=== PATIENT | female | born 1970 | race Caucasian/White ===

== ENCOUNTER 2017-04-21 14:50 | Emergency (ER) | payer BC ==
[~2017-04-21] VITALS: Ht 182.9 cm; Wt 117.9 kg
[~2017-04-21 14:50] MED LIST: ACET325 PO; Amoxicillin500 MG PO; CEPH500 PO; CHOL10002; CYCL10 PO; Cleocin HCl300 MG PO; Cyclobenzaprine5 MG PO; GABA300 PO; HYDACE5 PO; Hair, Skin & N1 EACH PO; IBUP800 PO; LORA1 PO; Multiple Vitam1 EAC1 PO; NAPR500 PO; Norco 10-325 T1 EACH PO; OXYACE5T PO; OXYC5 PO; PENVK500 PO; PROM25 PO; Percocet 5-3251 EACH PO; TRAZ100 PO; VENL150ER PO; VENL75ER PO; ZOLP5 PO; Zofran Odt4 MG SL
[2017-04-21] MEDS ORDERED: Norco 5-325 Ta1 EACH PO (16:31)
[2017-10-19] MEDS ORDERED: Venlafaxine HC225 MG PO (15:09)
[2017-10-19] MEDS ORDERED: ZOLP5 PO (15:10)
[2017-10-19] MEDS ORDERED: Cyclobenzaprine5 MG PO (17:22)
[2017-10-19] MEDS ORDERED: Norco 5-325 Ta1 EACH PO (17:22)
== END 2017-04-21 16:41 | disposition home or self-care (01) ==
LOC: ER 14:50
DX: S60.221A Contusion of right hand, initial encounter (principal); M79.645 Pain in left finger(s); F32.9 Major depressive disorder, single episode, unspecified; Z88.2 Allergy status to sulfonamides; Z88.8 Allergy status to other drugs, medicaments and biological substances; Z79.899 Other long term (current) drug therapy; Z98.51 Tubal ligation status; W55.12XA Struck by horse, initial encounter
CPT/HCPCS: 29125; 73130; 73140; 99283; L3917

== ENCOUNTER 2018-04-03 19:40 | Emergency (ER) | payer BC, MEDICARE ==
[~2018-04-03] VITALS: Ht 185.4 cm; Wt 115.7 kg
[~2018-04-03 19:40] MED LIST changes: +Norco 5-325 Ta1 EACH PO; +Venlafaxine HC225 MG PO
[2018-04-03] MEDS ORDERED: IBUP600 PO (20:36)
== END 2018-04-03 20:47 | disposition home or self-care (01) ==
LOC: ER 19:40
DX: S62.636A Displaced fracture of distal phalanx of right little finger, initial encounter for closed fracture (principal); W01.198A Fall on same level from slipping, tripping and stumbling with subsequent striking against other object, initial encounter; Z88.2 Allergy status to sulfonamides; Z88.8 Allergy status to other drugs, medicaments and biological substances; Z88.1 Allergy status to other antibiotic agents; Z79.899 Other long term (current) drug therapy
CPT/HCPCS: 29130; 73140; 99283-25

== ENCOUNTER → 2018-06-25 | Outpatient (CLI) | payer BC, MEDICARE ==
[~2018-06-25] MED LIST changes: +IBUP600 PO
[2018-06-27 14:07] LABS: HPV 16 Negative (Negative); HPV 18 Negative (Negative); HPV OTHER HR TYPES Negative (Negative)
== END | disposition home or self-care (01) ==
LOC: LAB SHORT 11:37 → LAB 11:37
PROVIDERS: Nurse Practitioner Obstetrics & Gynecology
DX: Z01.419 Encounter for gynecological examination (general) (routine) without abnormal findings (principal)
CPT/HCPCS: 87624; G0123

== ENCOUNTER 2019-04-14 01:08 | Emergency (ER) | payer BC, MEDICARE ==
[~2019-04-14] VITALS: Ht 182.9 cm; Wt 117.9 kg
[2019-04-14] MEDS ORDERED: OXYC5 PO (01:25)
== END 2019-04-14 03:37 | disposition home or self-care (01) ==
LOC: ER 01:08
DX: G89.18 Other acute postprocedural pain (principal); M79.671 Pain in right foot; Z88.2 Allergy status to sulfonamides; Z88.8 Allergy status to other drugs, medicaments and biological substances; Z91.048 Other nonmedicinal substance allergy status; Z79.899 Other long term (current) drug therapy
CPT/HCPCS: 96374; 96375; 96376; 99283-25; J1170; J2405

== ENCOUNTER → 2019-12-16 | Outpatient (CLI) | payer MEDICARE ==
[~2019-12-16] MED LIST changes: +IBU800 MG PO
[2019-12-17 16:10] LABS: HPV 16 Negative (Negative); HPV 18 Negative (Negative); HPV OTHER HR TYPES Positive (Negative)
== END | disposition home or self-care (01) ==
LOC: LAB 10:18 → LAB SHORT 10:18
PROVIDERS: Obstetrics & Gynecology
DX: Z01.419 Encounter for gynecological examination (general) (routine) without abnormal findings (principal)
CPT/HCPCS: 87624; 87625; G0123

== ENCOUNTER 2020-01-01 17:39 | Emergency (ER) | payer MEDICARE ==
[~2020-01-01] VITALS: Ht 182.9 cm; Wt 129.7 kg
[~2020-01-01 17:39] MED LIST changes: -IBU800 MG PO
[2020-01-01] MEDS ORDERED: IBU800 MG PO (18:18)
== END 2020-01-01 18:23 | disposition home or self-care (01) ==
LOC: ER 17:39
DX: S50.12XA Contusion of left forearm, initial encounter (principal); Z88.2 Allergy status to sulfonamides; Z88.8 Allergy status to other drugs, medicaments and biological substances; Z88.1 Allergy status to other antibiotic agents; Z79.899 Other long term (current) drug therapy; W55.12XA Struck by horse, initial encounter
CPT/HCPCS: 73090; 99283-25

== ENCOUNTER → 2020-01-28 | Outpatient (CLI) | payer MEDICARE ==
[~2020-01-28] MED LIST changes: +IBU800 MG PO
== END | disposition home or self-care (01) ==
LOC: LAB SHORT 08:19 → PLD 08:19
DX: R87.810 Cervical high risk human papillomavirus (HPV) DNA test positive (principal)
CPT/HCPCS: 88305

== ENCOUNTER → 2021-02-21 | Outpatient (CLI) | payer BC, MEDICARE ==
[2021-02-22 13:10] LABS: HPV 16 Negative (Negative); HPV 18 Negative (Negative); HPV OTHER HR TYPES Positive (Negative)
== END | disposition home or self-care (01) ==
LOC: LAB SHORT 15:43 → LAB 15:43
PROVIDERS: Obstetrics & Gynecology
DX: Z01.419 Encounter for gynecological examination (general) (routine) without abnormal findings (principal)
CPT/HCPCS: 87624; 87625; G0123

== ENCOUNTER → 2022-07-18 | Outpatient (CLI) | payer BC, MEDICARE ==
[2022-07-19 15:07] LABS: HPV 16 Negative (Negative); HPV 18 Negative (Negative); HPV OTHER HR TYPES Positive (Negative)
== END | disposition home or self-care (01) ==
LOC: LAB SHORT 11:20 → LAB 11:20
PROVIDERS: Obstetrics & Gynecology
DX: Z01.419 Encounter for gynecological examination (general) (routine) without abnormal findings (principal)
CPT/HCPCS: 87624; G0145

== ENCOUNTER 2023-10-07 15:22 | Inpatient (IN) | payer OTHER, BC, MEDICARE ==
[~2023-10-07] VITALS: Ht 182.9 cm; Wt 136.1 kg
[2023-10-07] MEDS ORDERED: Ketorolac Tromethamine 30mg Vial IV ONE ×2 (15:35→20:20)
[2023-10-07] MEDS ORDERED: Ondansetron HCl 2 MG / ML 2ML Vial IV PRN ×2 (17:15→19:10)
[2023-10-07] MEDS ORDERED: HYDROmorphone HCl/Pf 1MG SYR IV PRN (17:15)
[2023-10-07] MEDS ORDERED: NS 1,000 ML IV SCH (19:15)
[2023-10-07 19:51] LABS: BASOPHILS ABSOLUTE AUTO 0.04 K/mm3 (0.00-0.23); BASOPHILS PERCENT AUTO 0 % (0-2); EOSINOPHILS ABSOLUTE AUTO 0.04 K/mm3 (0.00-0.68); EOSINOPHILS PERCENT AUTO 0 % (0-6); Hematocrit 36.9 % (33.0-51.0); Hemoglobin 12.3 g/dL (11.5-16.0); IMMATURE GRAN ABSOLUTE AUTO 0.02 K/mm3 (0.00-0.10); IMMATURE GRAN PERCENT AUTO 0 % (0-1); LYMPHOCYTES ABSOLUTE AUTO 1.64 K/mm3 (0.84-5.20); LYMPHOCYTES PERCENT AUTO 17 % (21-46); MONOCYTES ABSOLUTE AUTO 0.39 K/mm3 (0.16-1.47); MONOCYTES PERCENT AUTO 4 % (4-13); Mean Corpuscular HGB 30.8 pg (26.0-34.0); Mean Corpuscular HGB Conc 33.3 g/dL (31.5-36.5); Mean Corpuscular Volume 93 fL (80-100); Mean Platelet Volume 11.2 fL (9.1-12.4); NEUTROPHILS ABSOLUTE AUTO 7.68 K/mm3 (1.96-9.15); NEUTROPHILS PERCENT AUTO 78 % (41-73); Platelet Count 206 K/mm3 (150-400); RDW Coefficient Variation 13.4 % (11.7-14.2); RDW Standard Deviation 45.9 fL (35.1-46.3); Red Blood Cell Count 3.99 M/mm3 (3.80-5.20); White Blood Cell Count 9.81 K/mm3 (4.00-11.30)
[2023-10-07 20:06] LABS: International Normalized Ratio 0.98; Prothrombin Time Results 10.5 Sec (9.7-11.5)
[2023-10-07 20:09] LABS: Albumin, Blood 3.4 g/dL (3.4-5.0); Bilirubin, Total 0.4 mg/dL (0.1-1.0); Bun/Creatinine Ratio 23.3 (12.0-20.0); Calcium, Blood 8.6 mg/dL (8.5-10.1); Creatinine, Blood 0.86 mg/dL (0.40-1.00); Globulin, Blood 3.5 g/dL (2.2-4.0); Potassium, Blood 4.7 mmol/L (3.5-5.5); Total Protein, Blood 6.9 g/dL (6.4-8.2)
[2023-10-07] MEDS ORDERED: FentaNYL Citrate 50 MCG/ML 2 ML Injection IV ONE (20:20)
[2023-10-07] MEDS ORDERED: LORazepam 2 MG/ML 1ML Injection IV ONE (20:40)
[2023-10-07 20:58] VITALS: BP 134/86
[2023-10-07] MEDS ORDERED: METFORMIN HCL500 M2 PO (22:51)
[2023-10-07] MEDS ORDERED: TRAVOPROST2.5 ML BOTHEYES (22:53)
[2023-10-07] MEDS ORDERED: TEARS LUBRICANT15 ML BOTHEYES (22:58)
[2023-10-07] MEDS ORDERED: Gabapentin 300 MG Cap PO SCH (23:15)
[2023-10-07] MEDS ORDERED: TraZODone HCl 100 MG Tab PO SCH (23:16)
[2023-10-07] MEDS ORDERED: Peg 400/Hypromellose/Glycerin 15 DROP/ML BTL BOTHEYES PRN (23:45)
[2023-10-08] VITALS (14 sets, daily range): BP systolic 109–144; BP diastolic 65–97
[2023-10-08 06:14] LABS: BASOPHILS ABSOLUTE AUTO 0.03 K/mm3 (0.00-0.23); BASOPHILS PERCENT AUTO 0 % (0-2); EOSINOPHILS ABSOLUTE AUTO 0.14 K/mm3 (0.00-0.68); EOSINOPHILS PERCENT AUTO 2 % (0-6); Hematocrit 34.4 % (33.0-51.0); Hemoglobin 11.4 g/dL (11.5-16.0); IMMATURE GRAN ABSOLUTE AUTO 0.02 K/mm3 (0.00-0.10); IMMATURE GRAN PERCENT AUTO 0 % (0-1); LYMPHOCYTES ABSOLUTE AUTO 1.82 K/mm3 (0.84-5.20); LYMPHOCYTES PERCENT AUTO 26 % (21-46); MONOCYTES PERCENT AUTO 7 % (4-13); Mean Corpuscular HGB 31.1 pg (26.0-34.0); Mean Corpuscular HGB Conc 33.1 g/dL (31.5-36.5); Mean Corpuscular Volume 94 fL (80-100); Mean Platelet Volume 11.2 fL (9.1-12.4); NEUTROPHILS ABSOLUTE AUTO 4.46 K/mm3 (1.96-9.15); NEUTROPHILS PERCENT AUTO 64 % (41-73); Platelet Count 179 K/mm3 (150-400); RDW Coefficient Variation 13.5 % (11.7-14.2); RDW Standard Deviation 46.1 fL (35.1-46.3); Red Blood Cell Count 3.67 M/mm3 (3.80-5.20); White Blood Cell Count 6.97 K/mm3 (4.00-11.30)
--- NOTE | 2023-10-08 06:35 | NUR ---
SUMMARY- PT ARRIVED TO ROOM IN NO DISTRESS. PT HAS NEW SPLINT PLACED IN ER. PT HAS GOOD COLOR, SENSATION AND PEDAL PULSE. PT PAIN MANAGED WELL PER EMAR AND ICE PACK TO KNEE. PT HAS BEEN NPO SINCE [facility]. PT RESTING COMFORTABLY. CALL LIGHT IN REACH.
[2023-10-08 07:14] LABS: Albumin, Blood 3.3 g/dL (3.4-5.0); Albumin/Globulin Ratio 1.1 (0.8-1.8); Bilirubin, Total 0.5 mg/dL (0.1-1.0); Bun/Creatinine Ratio 17.7 (12.0-20.0); Calcium, Blood 8.6 mg/dL (8.5-10.1); Creatinine, Blood 0.85 mg/dL (0.40-1.00); Globulin, Blood 3.1 g/dL (2.2-4.0); Potassium, Blood 4.1 mmol/L (3.5-5.5); Total Protein, Blood 6.4 g/dL (6.4-8.2)
[2023-10-08] MEDS ORDERED: Insulin Human Lispro 100 Units/ML 3ML Syringe SC SCH (07:30)
[2023-10-08] MEDS ORDERED: Latanoprost 0.005% Opth Soln 2.5 ML BOTHEYES SCH (09:00)
[2023-10-08] MEDS ORDERED: Venlafaxine HCl 75 MG CapCR PO SCH (09:00)
[2023-10-08] MEDS ORDERED: HYDROmorphone HCl/Pf 1MG SYR IV PRN (09:45)
[2023-10-08] MEDS ORDERED: LATA.005SO BOTHEYES (11:43)
[2023-10-08] MEDS ORDERED: CYCL10 PO (11:44)
[2023-10-08] MEDS ORDERED: MOBIC15 MG PO (11:44)
[2023-10-08] MEDS ORDERED: Venlafaxine HC150 MG PO (11:45)
[2023-10-08] MEDS ORDERED: OXYC5 PO (11:46)
[2023-10-08] MEDS ORDERED: Lactated Ringer's 1,000 ML IV SCH (13:25)
--- NOTE | 2023-10-08 13:30 | NUR ---
PT REPORTED INCREASED PAIN TO LLE AFTER MUSCLE SPASM. PT STATED SHE WAS CONCERNED ABOUT COMPARTMENT SYNDROME SINCE PAIN INCREASED. PT'S CAP REFIL <3 SECONDS. PEDAL PULSE STRONG AND EQUAL BILATERALLY. UNABLE TO ASSESS TIBIAL PULSE R/T DRESSING. TOES ARE PALE AND COOL BUT NOT COLD. PT DENIES N/T TO LLE. PT EDUCATED REGARDING S/S OF COMPARTMENT SYNDROME
[2023-10-08] MEDS ORDERED: FentaNYL Citrate 50 MCG/ML 2 ML Injection ONE (14:37)
[2023-10-08] MEDS ORDERED: Midazolam HCl 1MG / ML 2ML Vial ONE (14:37)
[2023-10-08] MEDS ORDERED: propofoL 20 ML IV ONE (14:38)
--- NOTE | 2023-10-08 14:51 | NUR ---
PT TAKEN TO DAY SURGERY AT THIS TIME.
--- NOTE | 2023-10-08 15:00 | NUR ---
PT TO DAY SURGERY FROM SURGICAL FLOOR FOR L EXTERNAL FIXATOR KNEE. CHART AND HX REVIEWED. PLAN OF CARE DISCUSSED WITH PT AND HER . QUESTIONS ANSWSERED.
--- NOTE | 2023-10-08 15:06 | NUR ---
PT TO DAY SURGERY WITH 20G IV TO LEFT WRIST
[2023-10-08] MEDS ORDERED: CeFAZolin Sodium 3,000 MG in NS 100 ML IV SCH (15:20)
[2023-10-08] MEDS ORDERED: CeFAZolin Sodium 2,000 MG VIAL ONE (15:29)
[2023-10-08] MEDS ORDERED: Ketorolac Tromethamine 30mg Vial ONE (16:06)
[2023-10-08] MEDS ORDERED: Ondansetron HCl 2 MG / ML 2ML Vial ONE (16:06)
[2023-10-08] MEDS ORDERED: Dexamethasone Sod Phos 10 MG/ML 1ML VIAL ONE (16:06)
[2023-10-08] MEDS ORDERED: HYDROmorphone HCl/Pf 1MG SYR ONE ×2 (16:43→17:00)
[2023-10-08] MEDS ORDERED: OxyCODONE HCL 5 MG TAB PO PRN (18:30)
[2023-10-08] MEDS ORDERED: Ketorolac Tromethamine 15mg Vial IV PRN (18:30)
--- NOTE | 2023-10-08 19:41 | NUR ---
SHIFT SUMMARY PT ARRIVED BACK TO THE ROOM AT APPROXIMATELY 1723. PT CRYING IN PAIN, DILAUDID GIVEN FOR PAIN. DR. CORONADO NOTIFIED OF ELEVATED PAIN, PO PAIN MEDICATION ORDERED IN ADDITION TO IV. PT PLACED ON CONTINUOUS PULSE OX FOR HIGH RISK PAIN MANAGEMENT. BEDSIDE REPORT GIVEN TO SEAN GARCIA.
[2023-10-09] VITALS (12 sets, daily range): BP systolic 100–147; BP diastolic 60–95
[2023-10-09] MEDS ORDERED: Acetaminophen 500 MG Tab PO SCH
--- NOTE | 2023-10-09 04:59 | NUR ---
SHIFT SUMMARY SAW WAS ALERT AND FULLY ORIENTED ON ASSESSMENT. DRIED RED BLOOD NOTED AT BOTH FIXATION SITES. PAIN WELL MANAGED AT THIS TIME, EDUCATION PROVIDED ON THERAPEUTIC USE OF IV PAIN MANAGEMENT. PEDAL PULSES AND SENSATION INTACT, PT ON BEDREST. NO CHANGES NOTED TO PT CONDITION
[2023-10-09] MEDS ORDERED: Enoxaparin 30 MG/0.3 ML SYR SC SCH (09:00)
--- NOTE | 2023-10-09 11:40 | NUR ---
PATIENTS BANDAGES WERE JUST CHANGED WHICH TOOK 3 STAFF MEMEBERS TO CHANGE. PATIENT HAS NEW XEROFOAM, GAUZE, KERLEX, AND CHRISTINA WRAP AROUND BOTH EXTERNAL FIXATIONS THAT ARE NOW C/D/I. PATIENT DENIES NUMBNESS OR TINGLING IN ALL EXTREMITIES. SHE IS LAYING IN BED WITH CALL LIGHT IN REACH.
--- NOTE | 2023-10-09 14:47 | NUR ---
PATIENT WAS GIVEN IV DILAUDID RIGHT BEFORE BEING SLID OVER FROM THE BED TO THE XRAY GURNEY. ONCE PATIENT WAS ON THE XRAY GURNEY PATIENT WAS TALKING CLEAR AND COHERENTLY THEN IN THE MIDDLE OF HER SENTENCE PATIENT REPORTED HER RIGHT SIDE OF HER FACE WAS NUMB AND THEN HAD GARBLED SPEECH. CATALINO RN ASKED FOR THE PATIENT TO SMILE AND HER RIGHT SIDE OF HER MOUTH DID NOT MOVE. CATALINO RN ALSO ASKED THE PATIENT TO STICK OUT HER TOUGNE WHICH SHE STUCK OUT TO THE LEFT SIDE OF HER MOUTH. THIS NURSE THEN CALLED A RAPID RESPONSE. ONCE THE RAPID RESPONSE TEAM ARRIVED TO THE ROOM THE PATIENT WAS STARTING TO SPEAK MORE CLEARLY BUT WAS STILL REPORTING NUMBNESS TO HER RIGHT SIDE. SBP WAS ELEVATED BUT OTHERWISE VITALS WERE WNL. PATIENTS FOREIGN EXCHANGE SERVICES MANAGER IN BOTH HANDS WERE STRONG. PEDAL PULSES WERE STRONG AND WARM TO TOUCH AND SHE WAS ABLE TO WIGGLE BOTH FINGERS AND TOES. DR. SAUCEDO STATED "DO Q1H NEURO CHECKS X5 AND Q1H SBP CHECKS X5 ONCE SHE COMES BACK FROM THE HEAD CT AND X-RAYS TO HER LEFT LEG".
--- NOTE | 2023-10-09 14:56 | NUR ---
PATIENT IS CURRENTLY IN IMAGING AT THIS TIME.
[2023-10-09] MEDS ORDERED: FentaNYL Citrate 50 MCG/ML 2 ML Injection IV PRN (15:20)
--- NOTE | 2023-10-09 15:26 | NUR ---
"Spiritual Care | Rapid Response Gave family support while pt. was being attended, and then brought back to Imaging. Stayed with family and facilitated life review until Pt. returned to her room. Family verbalized gratitude for the spiritual care support."
--- NOTE | 2023-10-09 15:36 | NUR ---
NEURO CHECK #1: PATIENT IS A&OX4. SHE IS ANSWERING QUESTIONS APPROPRIATELY, CLEARLY, AND CORRECTLY. WHEN SHE SMILES IT IS SYMETRICAL. SHE DENIES NUMBNESS TO THE RIGHT SIDE OF HER FACE. THIS NURSE TESTED THE PATIENTS HAND LAP MACHINE OPERATOR AND THEY ARE BOTH STRONG WITH EVEN STRENGTH. SHE IS ABLE TO MOVE ALL EXTREMITIES. DENIES NUMBNESS OR TINGLING TO ALL EXTREMITIES. WHEN ASKED TO STICK OUT HER TOUGNE IT DOES NOT DEVIATE TO ONLY ONE SIDE. SHE IS LAYING IN BED WITH CALL LIGHT IN REACH.
[2023-10-09] MEDS ORDERED: Aspirin 325 MG Tab PO ONE (15:40)
--- NOTE | 2023-10-09 16:35 | NUR ---
NEURO CHECK #2: NO SIGNIFICANT CHANGES SINCE FIRST NEURO CHECK. PATIENT IS A&OX4. VS ARE WNL AND IS ON RA. PATIENT IS ANSWERING QUESTIONS CLEARLY AND APPROPRIATELY. WHEN ASKED TO SMILE PATIENTS SMILE IS SYMETRICAL. BOTH HAND SECRETARY TO BOARD OF COMMISSIONERS STRENGTH IS STRONG AND EQUAL. PATIENT DENIES NUMBNESS TO THE RIGHT SIDE OF HER FACE. PATIENT IS ABLE TO MOVE ALL EXTREMITIES AND WIGGLE ALL FINGERS AND TOES WHEN ASKED. WHEN ASKED TO STICK OUT HER TOUGNE IT DOES NOT DEVIATE TO ONE SIDE. PATIENT IS LAYING IN BED WITH CALL LIGHT IN REACH.
--- NOTE | 2023-10-09 16:38 | NUR ---
SHIFT SUMMARY: POD 1 LEFT KNEE EXTERNAL FIXATION REPAIR PATIENT IS A&OX4. SHE IS SPEAKING CLEARLY AND ANSWERING QUESTIONS APPROPRIATELY WITH NO GARBLED SPEECH SO FAR. PATIENT IS STILL ON THE Q1H SBP AND NEURO CHECKS PER DR. SAUCEDO'S ORDERS (SEE PREVIOUS NOTES) WHICH HAVE BEEN WNL AT THIS TIME. HER LEFT LEG HAS AN EXTERNAL FIXATION WITH GAUZE AND CHRISTINA WRAP DRESSING. PATIENT DENIES NUMBNESS OR TINGLING IN ALL EXTREMITIES. SHE IS ABLE TO WIGGLE ALL FINGERS AND TOES WHEN ASKED. SHE IS TOLERATING PO INTAKE AND IS VOIDING VIA PURWICK THATS ON LOW INTERMITTENT SUCTION. PATIENT IS LAYING IN BED WITH CALL LIGHT IN REACH AND FAMILY AT BEDSIDE. PATIENT CALLS APPROPRIATELY.
--- NOTE | 2023-10-09 17:23 | NUR ---
NEURO CHECK #3: PATIENT IS ANSWERING QUESTIONS CLEARLY AND APPROPRIATELY. SHE IS A&OX4. VS ARE WNL AND IS ON RA. PATIENT DENIES NUMBNESS TO HER RIGHT SIDE OF FACE OR TO ANY EXTREMITIES. SHE IS ABLE TO WIGGLE ALL FINGERS AND TOES WHEN ASKED. BOTH HAND PHARMACEUTICAL SALES REPRESENTATIVE ARE STRONG AND EQUAL. WHEN SHE SMILES HER SMILE IS SYMETRICAL. WHEN SHE STICKS OUT HER TOUGNE IT DOES NOT DEVIATE TO ONE SIDE. PATIENT IS LAYING IN BED WITH CALL LIGHT IN REACH. PATIENT CALLS APPROPRIATELY.
--- NOTE | 2023-10-09 18:20 | NUR ---
NEURO CHECK #4: PATIENT IS ANSWERING QUESTIONS CLEARLY AND APPROPRIATELY. SHE IS A&OX4. VS ARE WNL AND IS ON RA. SHE DENIES NUMBNESS TO HER FACE OR ANY EXTREMITIES. SHE IS ABLE TO WIGGLE ALL FINGERS AND TOES WHEN ASKED. WHEN PATIENT SMILES HER SMILE IS SYMETRICAL. WHEN SHE STICKS OUT HER TOUGNE IT DOES NOT DEVIATE TO A SPECIFIC SIDE. HER HAND [place] MACHINE OPERATOR IN BOTH HANDS ARE STRONG AND EVEN. PATIENT IS LAYING IN BED WITH CALL LIGHT IN REACH. SHE CALLS APPROPRIATELY.
[2023-10-10 04:10] VITALS: BP 111/71
[2023-10-10 05:02] LABS: CHOL/HDL RATIO 2.6; Cholesterol 152 mg/dL (50-200); HDL Cholesterol 59 mg/dL (>39); LDL/HDL RATIO 1.3; Low Density Lipoprotein Chol 76 mg/dL (0-110); Triglycerides 83 mg/dL (30-160); Very Low Density Lipoprot Chol 16 mg/dL (6-32)
--- NOTE | 2023-10-10 05:22 | NUR ---
SHIFT SUMMARY POD2 EXTERNAL FIXATION OF LLE. LOWER DRESSING NOTED TO BE WEEPING A MODERATE AMOUNT, PT HAS REFUSED DRESSING CHANGES T/O THE NIGHT D/T IT BEING TOO PAINFUL. SENSATION AND CIRCULATION REMAIN INTACT. LIMB NOTED TO HAVE NONPITTING EDEMA T/O. VSS. PURE WICK IN PLACE, GOOD URINE OUTPUT NOTED. PT MEDICATED FOR PAIN T/O THE NIGHT WITH PRN'S WITH GOOD RESULTS. NO ACUTE NEURO CHANGES NOTED T/O THE NIGHT. PLAN TO AWAIT PT/OT EVAL AND WHERE THE PATIENT WILL GO WHILE AWAITING SURGERY AT [facility].
--- NOTE | 2023-10-10 06:22 | NUR ---
DRESSING CHANGE LOWER DRESSING CHANGED ON LLE
[2023-10-10 07:29] VITALS: BP 133/69
[2023-10-10] MEDS ORDERED: CeFAZolin Sodium 1,000 MG in NS 50 ML IV SCH (08:35)
[2023-10-10] MEDS ORDERED: NS 250 ML IV PRN (08:50)
[2023-10-10] MEDS ORDERED: Lactobacil 2-S.Thermo-Bifido 1 1 Cap PO SCH (09:00)
[2023-10-10] MEDS ORDERED: Aspirin 81 MG Chew PO SCH (09:00)
[2023-10-10] MEDS ORDERED: Cyclobenzaprine HCl 10 MG Tab PO PRN ×2 (13:10→14:10)
[2023-10-10] MEDS ORDERED: Ketorolac Tromethamine 15mg Vial IV PRN (14:10)
[2023-10-10] MEDS ORDERED: HYDROmorphone HCl/Pf 1MG SYR IV PRN (14:10)
[2023-10-10 14:30] VITALS: BP 115/76
--- NOTE | 2023-10-10 16:39 | NUR ---
SHIFT SUMMARY: POD 2 LEFT LEG EXTERNAL FIXATION REPAIR PATIENT IS A&OX4. VS ARE WNL AND IS ON RA. PATIENT REPORTS PAIN IS MANAGED PER EMAR NOW. PATIENT DID CALL THE ER FROM HER ROOM EARLIER TODAY. PATIENT STATES "I TRIED CALLING THE ER DOCTOR I HAD WHEN I FIRST CAME IN SINCE HE KNEW HOW TO MANAGE MY PAIN BETTER AND I WANTED HIM TO TALK WITH DR. SAUCEDO". PRIOR TO THE PATIENT DOING THIS, THIS NURSE CHECKED IN ON THE PATIENT AND SHE STATED THAT HER PAIN WAS DOING "OKAY FOR NOW". THIS NURSE EDUCATED THE PATIENT TO NOT CALL THE ER FROM HER ROOM AND TO INSTEAD CALL THIS NURSE OR A STAFF MEMEBER TO VOICE HER CONCERNS IN WHICH THOSE CONCERNS CAN BE RELAYED TO THE DOCTOR. PATIENT VERBALIZED UNDERSTANDING OF EDUCATION AND HAD NO FURTHER QUESTIONS AT THIS TIME. HER LEFT LEG HAS THE EXTERNAL FIXATIONS WITH GAUZE, CHRISTINA WRAP, KERLEX, AND XEROFORM THAT ARE C/D/I. SHE DENIES NUMBNESS OR TINGLING THROUGHOUT ALL EXTREMITIES. PATIENT IS ABLE TO MOVE ALL FINGERS AND TOES WHEN ASKED. SHE IS TOLERATING PO INTAKE AND IS VOIDING USING A PURWICK. PURWICK OUTPUT HAS YELLOW COLORED URINE OUTPUT. PATIENT IS LAYING IN BED WITH CALL LIGHT IN REACH. SHE CALLS APPROPRIATELY.
[2023-10-10 19:48] VITALS: BP 107/74
[2023-10-11 06:01] VITALS: BP 103/65
[2023-10-11 07:10] VITALS: BP 111/80
[2023-10-11 15:08] VITALS: BP 134/81
--- NOTE | 2023-10-11 20:08 | NUR ---
PT STABLE POST OP DAY 3 OF EXTERNAL FIXATION. PT WORKED WITH THERAPY TO DO BED EXERCISES. PLAN FOR SNF THEN FOLLOW UP AT [facility] IN 2 WEEKS. NEEDS APPOINTMENT SCHEDULED. MODERATE DRAINAGE FROM LEFT LEF DRESSING. CHANGED THIS EVENING PRN BY CHRISTMAS TREE CONTRACTOR. PT BLOOD SUGARS STABLE. EATING AND DRINKING WELL. PUREWICK IN USE FOR COMFORT. PT HAD LARGE BM THIS SHIFT. PAIN CONTROLLED WITH PRN MEDS.
[2023-10-11 20:18] VITALS: BP 138/80
[2023-10-12 05:27] VITALS: BP 121/69
--- NOTE | 2023-10-12 06:10 | NUR ---
SHIFT SUMMARY PT IS POD4 FOR EXTERNAL FIXATION OF L LEG. INCISION SITES DRAINING SEROSANGUINEOUS FLUID. WILL CHANGE DRESSING THIS AM. PT CAN WIGGLE TOES, PEDAL PULSE IN L FOOT PALPABLE. VSS. PT MEDICATED FOR PAIN W/ TOLERABLE RESULTS. VOIDING W/ PUREWICK. USING CALL LIGHT APPROPRIATELY. CONT BOIX IN PLACE.
[2023-10-12 07:35] VITALS: BP 121/79
[2023-10-12] MEDS ORDERED: LORazepam 2 MG/ML 1ML Injection IV ONE (14:55)
[2023-10-12 17:36] VITALS: BP 132/77
[2023-10-12 19:14] VITALS: BP 121/68
--- NOTE | 2023-10-12 20:00 | NUR ---
SHIFT SUMMARY PAIN MANAGED WITH OXY, TYLENOL AND TORADOL THIS SHIFT. PT IS STILL HAVING LARGE AMOUNTS OF SEROSANGUINOUS DRAINAGE, DRESSING CHANGED. FAMILY PRESENT FOR SUPPORT. BEDSIDE REPORT GIVEN TO SEAN GARCIA.
[2023-10-13 02:43] VITALS: BP 139/71
--- NOTE | 2023-10-13 04:15 | NUR ---
SHIFT SUMMARY POD5 FOR EX FIX OF L LEG. DRESSINGS IN PLACE, SOME DRAINAGE NOTED, WILL CHANGE DRESSING THIS AM IF NEEDED. L LEG ELEVATED ON PILLOWS. PEDAL PULSE PALPABLE, PT ABLE TO WIGGLE L TOES. PAIN MEDS GIVEN PER EMAR W/ TOLERABLE RESULTS, PT ABLE TO SLEEP MOST OF SHIFT. VSS. TOLERATING REG DIET AND FLUIDS. IV ABX GIVEN PER EMAR. PURWICK IN PLACE DRAINING YELLOW URINE. USING CALL LIGHT APPROPRIATELY.
[2023-10-13 06:31] VITALS: BP 116/67
[2023-10-13 10:09] LABS: Hematocrit 30.7 % (33.0-51.0); Hemoglobin 9.8 g/dL (11.5-16.0); Mean Corpuscular HGB 30.3 pg (26.0-34.0); Mean Corpuscular HGB Conc 31.9 g/dL (31.5-36.5); Mean Corpuscular Volume 95 fL (80-100); Mean Platelet Volume 10.6 fL (9.1-12.4); Platelet Count 194 K/mm3 (150-400); RDW Coefficient Variation 13.4 % (11.7-14.2); RDW Standard Deviation 46.8 fL (35.1-46.3); Red Blood Cell Count 3.23 M/mm3 (3.80-5.20); White Blood Cell Count 7.15 K/mm3 (4.00-11.30)
[2023-10-13 10:27] LABS: Bun/Creatinine Ratio 14.9 (12.0-20.0); Calcium, Blood 8.3 mg/dL (8.5-10.1); Creatinine, Blood 0.81 mg/dL (0.40-1.00); Potassium, Blood 4.1 mmol/L (3.5-5.5)
[2023-10-13 19:46] VITALS: BP 135/74
--- NOTE | 2023-10-13 19:58 | NUR ---
SHIFT SUMMARY PAIN MANAGED WITH OXY, TYLENOL AND TORADOL THIS SHIFT. DRESSING CHANGED THIS AFTERNOON AT 1600, SITES CLEANSED WITH H2O2, XEROFORM APPLIED AROUND PIN SITES, GAUZE, KERLEX AND CHRISTINA WRAP APPLIED. PT WAS ALSO GIVEN A BEDBATH AND LINENS CHANGED. FAMILY HAS BEEN PRESENT AND SUPPORTIVE. BEDSIDE REPORT GIVEN TO SEAN GARCIA.
[2023-10-14 04:21] VITALS: BP 117/63
[2023-10-14 04:46] LABS: BASOPHILS ABSOLUTE AUTO 0.03 K/mm3 (0.00-0.23); BASOPHILS PERCENT AUTO 0 % (0-2); EOSINOPHILS PERCENT AUTO 3 % (0-6); Hematocrit 28.7 % (33.0-51.0); Hemoglobin 9.4 g/dL (11.5-16.0); IMMATURE GRAN ABSOLUTE AUTO 0.04 K/mm3 (0.00-0.10); IMMATURE GRAN PERCENT AUTO 1 % (0-1); LYMPHOCYTES PERCENT AUTO 21 % (21-46); MONOCYTES ABSOLUTE AUTO 0.49 K/mm3 (0.16-1.47); MONOCYTES PERCENT AUTO 7 % (4-13); Mean Corpuscular HGB 30.7 pg (26.0-34.0); Mean Corpuscular HGB Conc 32.8 g/dL (31.5-36.5); Mean Corpuscular Volume 94 fL (80-100); Mean Platelet Volume 10.9 fL (9.1-12.4); NEUTROPHILS ABSOLUTE AUTO 4.56 K/mm3 (1.96-9.15); NEUTROPHILS PERCENT AUTO 68 % (41-73); Platelet Count 218 K/mm3 (150-400); RDW Coefficient Variation 13.2 % (11.7-14.2); Red Blood Cell Count 3.06 M/mm3 (3.80-5.20); White Blood Cell Count 6.72 K/mm3 (4.00-11.30)
[2023-10-14 05:10] LABS: Bun/Creatinine Ratio 15.7 (12.0-20.0); Calcium, Blood 8.2 mg/dL (8.5-10.1); Creatinine, Blood 0.77 mg/dL (0.40-1.00); Potassium, Blood 4.4 mmol/L (3.5-5.5)
--- NOTE | 2023-10-14 05:33 | NUR ---
SHIFT SUMMARY POD6 LLE EX FIX. PAIN MANAGED WITH OXYCODONE AND TYLENOL. VSS. SCANT DRAINAGE PRESENT ON DRESSING. PT REPORTING PARTIAL NUMBNESS TO 3,4,5 LEFT TOES, CAP REFILL 3 SECS, WARM TO TOUCH, PT CAN WIGGLE ALL TOES. WILL PASS ON TO DAY SHIFT RN AND PT INSTRUCTED TO REPORT FURTHER CHANGES. USING CALL LIGHT APPROPRIATELY.
[2023-10-14 07:40] VITALS: BP 115/64
[2023-10-14 15:54] VITALS: BP 129/92
--- NOTE | 2023-10-14 16:04 | NUR ---
[facility] CONTACTED REGARDING PT REFFERAL. [facility] STATES THAT THEY HAVE NO RECORD OF REFFERAL. IMMAGES STAT PUSHED. RECIEVED CALL BACK FROM [facility] THAT THEY WILL SEE PT WITHIN 0-[address] TURPIN NOTIFIED, STATES HIS OFFICE SENT REFFERAL AND THAT HE ALSO HAD TOLD PT TO CALL IN ADDITION TO REFERAL. DR SAUCEDO AND PRIMARY RN ALSO NOTIFIED.
--- NOTE | 2023-10-14 19:39 | NUR ---
SHIFT SUMMARY POD9 L TIB/FIB EXTERNAL FIXATION, A/OX4, VSS, TOLERATING PO, PAIN MANAGED PER EMAR, DRESSING CHANGED TODAY, PT HAS NOT BEEN OOB STATING SHE WAS TOLD SHE IS ON BEDREST THOUGH NO BEDREST ORDER CAN BE FOUND IN HER CHART. DISCUSSION WITH [facility] TODAY (SEE NOTES). NO ACUTE EVENTS THIS SHIFT, CALL LIGHT IN REACH.
[2023-10-14 20:05] VITALS: BP 125/78
[2023-10-14 20:09] VITALS: BP 125/78
[2023-10-15 05:29] VITALS: BP 125/77
--- NOTE | 2023-10-15 05:51 | NUR ---
SHIFT SUMMARY PT ABLE TO SLEEP MOST OF NIGHT. MEDICATED FOR PAIN PER EMAR W/ TOLERABLE RESULTS. PT AFEBRILE AT THIS TIME BUT DID HAVE ELEVATED TEMPS LAST NIGHT. MEDICATED W/ TYLENOL PER EMAR AND TURNED DOWN HEAT IN ROOM, REMOVED BLANKETS. VSS. CAP REFILL IN L FOOT 3 SECS, MODERATE PITTING EDEMA PRESENT IN L FOOT W/ PEDAL PULSE STILL PALPABLE. PT DOES REPORT SOME NUMBNESS IN L SIDE OF L FOOT, FOOT IS WARM TO TOUCH AND PT CAN WIGGLE ALL TOES, PT STATES IT MIGHT BE POSITIONAL. FOOT ELEVATED ON PILLOWS. PT CURRENTLY RESTING PEACEFULLY. PURWICK IN PLACE. IV ABX GIVEN PER EMAR. PT USING CALL LIGHT APPROPRIATELY.
[2023-10-15 08:02] VITALS: BP 110/63
--- NOTE | 2023-10-15 14:32 | NUR ---
DISCHARGE SUMMARY PT DISCHARGED TO [employer]IVATE AUTO TO GO UP TO [facility] FOR AN APPOINTMENT AT 1430 TODAY. AFTER ATTEMPTING TO ASSIST HER INTO HER VEHICLE FOR 45 MINUTES UNSUCCESSFULLY SHE DECIDED TO CALL [facility] FOR A WHEELCHAIR RIDE THERE AND [facility]LEEN TO [facility]. PER PT REQUEST SHE IS WAITING OUT FRONT WITH HER FAMILY.
--- NOTE | 2023-10-15 16:25 | NUR ---
REPORT TO [facility] CALLED REPORT TO [facility], REPORT GIVEN TO ALLEGRA GARCIA.
== END 2023-10-15 13:24 | disposition home or self-care (01) | DRG 493 ==
LOC: ER 15:22 → SURS 19:09
PROVIDERS: Family Medicine; Orthopaedic Surgery Sports Medicine; ADMIT Internal Medicine
PROC: 0QHH35Z Insertion of External Fixation Device into Left Tibia, Percutaneous Approach (ICD-10-PCS; 2023-10-08)
PROC: 0QHK35Z Insertion of External Fixation Device into Left Fibula, Percutaneous Approach (ICD-10-PCS; principal; 2023-10-08 15:00)
DX: S82.142A Displaced bicondylar fracture of left tibia, initial encounter for closed fracture (principal); G45.9 Transient cerebral ischemic attack, unspecified; Z68.41 Body mass index [BMI] 40.0-44.9, adult; S82.192A Other fracture of upper end of left tibia, initial encounter for closed fracture; S82.832A Other fracture of upper and lower end of left fibula, initial encounter for closed fracture; G62.9 Polyneuropathy, unspecified; F32.A Depression, unspecified; E66.9 Obesity, unspecified; D64.9 Anemia, unspecified; R29.810 Facial weakness; R47.81 Slurred speech; V80.010A Animal-rider injured by fall from or being thrown from horse in noncollision accident, initial encounter; Z88.2 Allergy status to sulfonamides; Z88.8 Allergy status to other drugs, medicaments and biological substances; Z88.1 Allergy status to other antibiotic agents; Z79.899 Other long term (current) drug therapy; Z90.89 Acquired absence of other organs; Z98.890 Other specified postprocedural states; Z98.51 Tubal ligation status
CPT/HCPCS: 29505; 36415; 70450; 73552; 73560-LT; 73590; 73610; 73700; 76377; 80048; 80053; 80061; 82947; 83880; 85025; 85027; 85610; 93306; 93880; 93971; 94762; 96374-59; 96375-59; 96376-59; 97110; 97162; 97530; 99285-25; A9270; C1713; J0690; J1100; J1170; J1650; J1885; J2060; J2250; J2405; J2704; J3010; J7030; J7050; J7120

== ENCOUNTER 2023-11-24 12:26 | Emergency (ER) | payer BC, MEDICARE ==
[~2023-11-24] VITALS: Ht 182.9 cm; Wt 136.1 kg
[~2023-11-24 12:26] MED LIST changes: +LATA.005SO BOTHEYES; +METFORMIN HCL500 M2 PO; +MOBIC15 MG PO; +TEARS LUBRICANT15 ML BOTHEYES; +TRAVOPROST2.5 ML BOTHEYES; +Venlafaxine HC150 MG PO
[2023-11-24 13:28] LABS: BASOPHILS ABSOLUTE AUTO 0.03 K/mm3 (0.00-0.23); BASOPHILS PERCENT AUTO 0 % (0-2); EOSINOPHILS ABSOLUTE AUTO 0.12 K/mm3 (0.00-0.68); EOSINOPHILS PERCENT AUTO 2 % (0-6); Hematocrit 39.6 % (33.0-51.0); Hemoglobin 12.5 g/dL (11.5-16.0); IMMATURE GRAN ABSOLUTE AUTO 0.02 K/mm3 (0.00-0.10); IMMATURE GRAN PERCENT AUTO 0 % (0-1); LYMPHOCYTES ABSOLUTE AUTO 1.31 K/mm3 (0.84-5.20); LYMPHOCYTES PERCENT AUTO 18 % (21-46); MONOCYTES ABSOLUTE AUTO 0.33 K/mm3 (0.16-1.47); MONOCYTES PERCENT AUTO 5 % (4-13); Mean Corpuscular HGB Conc 31.6 g/dL (31.5-36.5); Mean Corpuscular Volume 92 fL (80-100); Mean Platelet Volume 11.1 fL (9.1-12.4); NEUTROPHILS ABSOLUTE AUTO 5.32 K/mm3 (1.96-9.15); NEUTROPHILS PERCENT AUTO 75 % (41-73); Platelet Count 223 K/mm3 (150-400); RDW Coefficient Variation 13.8 % (11.7-14.2); RDW Standard Deviation 47.4 fL (35.1-46.3); Red Blood Cell Count 4.31 M/mm3 (3.80-5.20); White Blood Cell Count 7.13 K/mm3 (4.00-11.30)
[2023-11-24 13:51] LABS: Albumin, Blood 3.4 g/dL (3.4-5.0); Albumin/Globulin Ratio 0.8 (0.8-1.8); Bilirubin, Total 0.4 mg/dL (0.1-1.0); Bun/Creatinine Ratio 12.2 (12.0-20.0); Calcium, Blood 9.7 mg/dL (8.5-10.1); Creatinine, Blood 0.74 mg/dL (0.40-1.00); Globulin, Blood 4.3 g/dL (2.2-4.0); Potassium, Blood 3.7 mmol/L (3.5-5.5); Total Protein, Blood 7.7 g/dL (6.4-8.2)
[2023-11-24 14:17] VITALS: BP 151/97
[2023-11-24] MEDS ORDERED: CeFAZolin Sodium 2,000 MG in NS 100 ML IV ONE (15:20)
[2023-11-24] MEDS ORDERED: CEPH500 PO (15:24)
== END 2023-11-24 16:19 | disposition home or self-care (01) ==
LOC: ER 12:26
PROVIDERS: Physician Assistant
DX: L03.116 Cellulitis of left lower limb (principal); S82.832D Other fracture of upper and lower end of left fibula, subsequent encounter for closed fracture with routine healing; X58.XXXD Exposure to other specified factors, subsequent encounter; Z96.662 Presence of left artificial ankle joint; Z79.84 Long term (current) use of oral hypoglycemic drugs; Z79.899 Other long term (current) drug therapy; Z88.2 Allergy status to sulfonamides; Z91.048 Other nonmedicinal substance allergy status
CPT/HCPCS: 73590; 80053; 85025; 96365; 99283-25; J0690

== ENCOUNTER → 2023-12-09 | Outpatient (CLI) | payer BC, MEDICARE ==
[2023-12-09 19:26] LABS: BASOPHILS ABSOLUTE AUTO 0.04 K/mm3 (0.00-0.23); BASOPHILS PERCENT AUTO 1 % (0-2); EOSINOPHILS ABSOLUTE AUTO 0.12 K/mm3 (0.00-0.68); EOSINOPHILS PERCENT AUTO 2 % (0-6); Hematocrit 35.8 % (33.0-51.0); Hemoglobin 11.3 g/dL (11.5-16.0); IMMATURE GRAN ABSOLUTE AUTO 0.01 K/mm3 (0.00-0.10); IMMATURE GRAN PERCENT AUTO 0 % (0-1); LYMPHOCYTES ABSOLUTE AUTO 1.43 K/mm3 (0.84-5.20); LYMPHOCYTES PERCENT AUTO 26 % (21-46); MONOCYTES ABSOLUTE AUTO 0.36 K/mm3 (0.16-1.47); MONOCYTES PERCENT AUTO 7 % (4-13); Mean Corpuscular HGB 28.7 pg (26.0-34.0); Mean Corpuscular HGB Conc 31.6 g/dL (31.5-36.5); Mean Corpuscular Volume 91 fL (80-100); Mean Platelet Volume 11.9 fL (9.1-12.4); NEUTROPHILS ABSOLUTE AUTO 3.53 K/mm3 (1.96-9.15); NEUTROPHILS PERCENT AUTO 64 % (41-73); Platelet Count 310 K/mm3 (150-400); RDW Coefficient Variation 14.1 % (11.7-14.2); RDW Standard Deviation 47.4 fL (35.1-46.3); Red Blood Cell Count 3.94 M/mm3 (3.80-5.20); White Blood Cell Count 5.49 K/mm3 (4.00-11.30)
[2023-12-09 20:02] LABS: Anion Gap 13 mmol/L (3-11); Blood Urea Nitrogen 10 mg/dL (8-24); Bun/Creatinine Ratio 13.7 (12.0-20.0); CO2, Blood 23 mmol/L (21-32); Calcium, Blood 9.3 mg/dL (8.5-10.1); Chloride, Blood 107 mmol/L (98-108); Creatinine, Blood 0.73 mg/dL (0.40-1.00); Glomerular Filtration Rate 97 (60-); Glucose, Blood 101 mg/dL (70-99); Potassium, Blood 4.1 mmol/L (3.5-5.5); Sodium, Blood 139 mmol/L (136-145); Vancomycin, Trough 19.1 ug/mL (5.0-10.0)
== END | disposition home or self-care (01) ==
LOC: LAB 18:36 → LAB SHORT 18:36
PROVIDERS: Internal Medicine; Student in an Organized Health Care Education/Training Program
DX: M86.8X6 Other osteomyelitis, lower leg (principal); S82.142D Displaced bicondylar fracture of left tibia, subsequent encounter for closed fracture with routine healing
CPT/HCPCS: 80048; 80202; 85025; 86140

== ENCOUNTER → 2023-12-24 | Outpatient (CLI) | payer BC, MEDICARE ==
[2023-12-24 14:14] LABS: BASOPHILS ABSOLUTE AUTO 0.06 K/mm3 (0.00-0.23); BASOPHILS PERCENT AUTO 2 % (0-2); EOSINOPHILS ABSOLUTE AUTO 0.26 K/mm3 (0.00-0.68); EOSINOPHILS PERCENT AUTO 7 % (0-6); Hematocrit 31.7 % (33.0-51.0); Mean Corpuscular HGB 27.8 pg (26.0-34.0); Mean Corpuscular HGB Conc 31.5 g/dL (31.5-36.5); Mean Corpuscular Volume 88 fL (80-100); Mean Platelet Volume 11.2 fL (9.1-12.4); Platelet Count 236 K/mm3 (150-400); RDW Coefficient Variation 13.9 % (11.7-14.2); RDW Standard Deviation 44.7 fL (35.1-46.3); White Blood Cell Count 3.84 K/mm3 (4.00-11.30)
[2023-12-24 14:19] LABS: IMMATURE GRAN ABSOLUTE AUTO 0.01 K/mm3 (0.00-0.10); IMMATURE GRAN PERCENT AUTO 0 % (0-1); LYMPHOCYTES ABSOLUTE AUTO 1.31 K/mm3 (0.84-5.20); LYMPHOCYTES PERCENT AUTO 34 % (21-46); MONOCYTES ABSOLUTE AUTO 0.17 K/mm3 (0.16-1.47); MONOCYTES PERCENT AUTO 4 % (4-13); NEUTROPHILS ABSOLUTE AUTO 2.03 K/mm3 (1.96-9.15); NEUTROPHILS PERCENT AUTO 53 % (41-73)
[2023-12-24 14:40] LABS: BAND PERCENT MAN 1 % (0-8); BASOPHILS ABSOLUTE MAN 0.03 K/mm3 (0.00-0.23); BASOPHILS PERCENT MAN 1 % (0-2); EOSINOPHILS ABSOLUTE MAN 0.15 K/mm3 (0.00-0.68); EOSINOPHILS PERCENT MAN 4 % (0-6); LYMPHOCYTES % ATYPICAL MANUAL 4 % (0-0); LYMPHOCYTES PERCENT MAN 43 % (21-46); MONOCYTES ABSOLUTE MAN 0.11 K/mm3 (0.16-1.47); MONOCYTES PERCENT MAN 3 % (4-13); NEUTROPHILS ABSOLUTE MAN 1.72 K/mm3 (1.96-9.15); SEG NEUTROPHILS PERCENT MAN 44 % (41-73); TOTAL CELLS COUNTED 100
[2023-12-24 22:07] LABS: Albumin, Blood 2.8 g/dL (3.4-5.0); Albumin/Globulin Ratio 0.8 (0.8-1.8); Bilirubin, Total 0.2 mg/dL (0.1-1.0); Bun/Creatinine Ratio 13.5 (12.0-20.0); C-REACTIVE PROTEIN, EXT RANGE 1.82 mg/dL (0.000-0.300); Calcium, Blood 8.4 mg/dL (8.5-10.1); Creatinine, Blood 0.67 mg/dL (0.40-1.00); Globulin, Blood 3.3 g/dL (2.2-4.0); Total Protein, Blood 6.1 g/dL (6.4-8.2)
== END ==
LOC: LAB SHORT 12:34 → LAB 12:34
PROVIDERS: Internal Medicine
DX: M86.152 Other acute osteomyelitis, left femur (principal); T81.42XA Infection following a procedure, deep incisional surgical site, initial encounter
CPT/HCPCS: 80053; 85025; 86140

== ENCOUNTER → 2023-12-30 | Outpatient (CLI) | payer BC, MEDICARE ==
[2023-12-30 14:30] LABS: BASOPHILS ABSOLUTE AUTO 0.09 K/mm3 (0.00-0.23); BASOPHILS PERCENT AUTO 1 % (0-2); EOSINOPHILS ABSOLUTE AUTO 0.15 K/mm3 (0.00-0.68); EOSINOPHILS PERCENT AUTO 2 % (0-6); Hematocrit 36.1 % (33.0-51.0); Hemoglobin 11.2 g/dL (11.5-16.0); IMMATURE GRAN ABSOLUTE AUTO 0.02 K/mm3 (0.00-0.10); IMMATURE GRAN PERCENT AUTO 0 % (0-1); LYMPHOCYTES ABSOLUTE AUTO 1.79 K/mm3 (0.84-5.20); LYMPHOCYTES PERCENT AUTO 29 % (21-46); MONOCYTES ABSOLUTE AUTO 0.43 K/mm3 (0.16-1.47); MONOCYTES PERCENT AUTO 7 % (4-13); Mean Corpuscular HGB 27.3 pg (26.0-34.0); Mean Corpuscular Volume 88 fL (80-100); NEUTROPHILS ABSOLUTE AUTO 3.77 K/mm3 (1.96-9.15); NEUTROPHILS PERCENT AUTO 60 % (41-73); Platelet Count 370 K/mm3 (150-400); RDW Coefficient Variation 14.5 % (11.7-14.2); RDW Standard Deviation 46.5 fL (35.1-46.3); Red Blood Cell Count 4.11 M/mm3 (3.80-5.20); White Blood Cell Count 6.25 K/mm3 (4.00-11.30)
[2023-12-30 16:56] LABS: Albumin, Blood 3.3 g/dL (3.4-5.0); Albumin/Globulin Ratio 0.8 (0.8-1.8); Bilirubin, Total 0.3 mg/dL (0.1-1.0); Bun/Creatinine Ratio 18.3 (12.0-20.0); Calcium, Blood 9.5 mg/dL (8.5-10.1); Creatinine, Blood 0.71 mg/dL (0.40-1.00); Globulin, Blood 3.9 g/dL (2.2-4.0); Potassium, Blood 4.2 mmol/L (3.5-5.5); Total Protein, Blood 7.2 g/dL (6.4-8.2)
== END | disposition home or self-care (01) ==
LOC: LAB 10:30 → LAB SHORT 10:30
PROVIDERS: Internal Medicine
DX: T81.42XA Infection following a procedure, deep incisional surgical site, initial encounter (principal); M86.152 Other acute osteomyelitis, left femur
CPT/HCPCS: 80053; 85025

== ENCOUNTER → 2024-01-06 | Outpatient (CLI) | payer BC, MEDICARE ==
[2024-01-06 14:10] LABS: BASOPHILS ABSOLUTE AUTO 0.06 K/mm3 (0.00-0.23); BASOPHILS PERCENT AUTO 1 % (0-2); EOSINOPHILS ABSOLUTE AUTO 0.18 K/mm3 (0.00-0.68); EOSINOPHILS PERCENT AUTO 3 % (0-6); Hematocrit 36.8 % (33.0-51.0); Hemoglobin 11.6 g/dL (11.5-16.0); IMMATURE GRAN ABSOLUTE AUTO 0.02 K/mm3 (0.00-0.10); IMMATURE GRAN PERCENT AUTO 0 % (0-1); LYMPHOCYTES PERCENT AUTO 26 % (21-46); MONOCYTES ABSOLUTE AUTO 0.33 K/mm3 (0.16-1.47); MONOCYTES PERCENT AUTO 5 % (4-13); Mean Corpuscular HGB 27.4 pg (26.0-34.0); Mean Corpuscular HGB Conc 31.5 g/dL (31.5-36.5); Mean Corpuscular Volume 87 fL (80-100); Mean Platelet Volume 12.3 fL (9.1-12.4); NEUTROPHILS PERCENT AUTO 66 % (41-73); Platelet Count 247 K/mm3 (150-400); RDW Coefficient Variation 15.2 % (11.7-14.2); RDW Standard Deviation 48.3 fL (35.1-46.3); Red Blood Cell Count 4.23 M/mm3 (3.80-5.20); White Blood Cell Count 7.29 K/mm3 (4.00-11.30)
[2024-01-06 16:18] LABS: C-REACTIVE PROTEIN, EXT RANGE 1.52 mg/dL (0.000-0.300)
[2024-01-06 16:27] LABS: Albumin, Blood 3.4 g/dL (3.4-5.0); Albumin/Globulin Ratio 0.8 (0.8-1.8); Bilirubin, Total 0.2 mg/dL (0.1-1.0); Bun/Creatinine Ratio 21.8 (12.0-20.0); Calcium, Blood 9.4 mg/dL (8.5-10.1); Creatinine, Blood 0.78 mg/dL (0.40-1.00); Globulin, Blood 4.2 g/dL (2.2-4.0); Potassium, Blood 4.1 mmol/L (3.5-5.5); Total Protein, Blood 7.6 g/dL (6.4-8.2)
== END ==
LOC: LAB 12:21 → LAB SHORT 12:21
PROVIDERS: Internal Medicine
DX: T81.42XA Infection following a procedure, deep incisional surgical site, initial encounter (principal); M86.152 Other acute osteomyelitis, left femur; Y83.8 Other surgical procedures as the cause of abnormal reaction of the patient, or of later complication, without mention of misadventure at the time of the procedure
CPT/HCPCS: 80053; 85025; 86140

== ENCOUNTER → 2024-10-02 | Outpatient (CLI) | payer BC, MEDICARE ==
[2024-10-07 15:27] LABS: HPVG SOURCE Cervical
== END ==
LOC: LAB SHORT 18:41 → LAB 18:41
PROVIDERS: Obstetrics & Gynecology
DX: Z01.419 Encounter for gynecological examination (general) (routine) without abnormal findings (principal)
CPT/HCPCS: 87624; 87625; G0123

== ENCOUNTER → 2024-11-20 | Outpatient (CLI) | payer BC, MEDICARE | END | disposition home or self-care (01) | LOC: LAB SHORT 08:16 → LAB 08:16 | DX: Z87.42 Personal history of other diseases of the female genital tract (principal) | CPT/HCPCS: 88305 ==